=== PATIENT | female | born 1960 | race Caucasian/White ===

== ENCOUNTER → 2020-02-24 11:33 | Outpatient (CLI) | payer OTHER, SELFPAY ==
--- NOTE | ~2020-02-24 | XR_ITS ---
EXAMINATION: XR hip LT min 2V DATE: 02/24/2020 11:47 INDICATION: Left hip pain. TECHNIQUE: 2 views of left hip were obtained. COMPARISON: None. FINDINGS: Bone alignment is normal. No fracture. Left hip joint space is normal. IMPRESSION: 1. Normal left hip. Reviewed, dictated and finalized at location A. ENT ACCOUNTS SPECIALIST IMPRESSION: 1. Normal left hip.
== END ==
PROVIDERS: PCP Family Medicine; Visit Provider Chiropractor
DX: M25.552 Pain in left hip (principal)
CPT/HCPCS: 73502

== ENCOUNTER 2020-03-23 09:56 | Outpatient (CLI) | payer OTHER, SELFPAY ==
--- NOTE | ~2020-03-23 | MM_ITS ---
EXAMINATION: MM screening [facility] BI w zane HISTORY: Screening mammogram TECHNIQUE: Craniocaudal and mediolateral oblique 3-D tomosynthesis images were obtained and synthetic 2-D images were generated. CAD analysis was submitted and interpreted. COMPARISON: 02/26/2019, 01/15/2018, 01/01/2017, 11/16/2014, 11/12/2013 bilateral digital screening mammogr am examinations BREAST PARENCHYMAL COMPOSITION: There are scattered areas of fibroglandular density. FINDINGS: Stable mild fibroglandular asymmetry. There is no evidence of suspicious mass, calcificatio n, or architectural distortion to suggest malignancy in either breast. There has been no suspicious i nterval change. IMPRESSION: 1. No mammographic evidence of malignancy. 2. Recommend routine screening mammography in one year. BI-RADS Category 1: Negative Reviewed, dictated and finalized at location A. R PRODUCTION LEAD WORKER
== END 2020-03-23 09:57 | disposition home or self-care (01) ==
PROVIDERS: PCP Family Medicine; Visit Provider Nurse Practitioner Obstetrics & Gynecology
DX: Z12.31 Encounter for screening mammogram for malignant neoplasm of breast (principal)
CPT/HCPCS: 77063; 77067

== ENCOUNTER → 2020-04-01 11:12 | Outpatient (CLI) | payer OTHER, SELFPAY ==
--- NOTE | ~2020-04-01 | XR_ITS ---
XR lumbar spine 2-3V DATE: 04/01/2020 11:52 INDICATION: Low back pain TECHNIQUE: AP, lateral, coned lateral lumbosacral views COMPARISON: None FINDINGS: Normal alignment of the lumbar spine. No fracture or bone destruction or spondylolisthesis. The lumbar pedicles are intact. There is mild t o moderate degenerative disc disease of the lumbar spine, most pronounced at L3-4. Joints are normal. IMPRESSION: Mild to moderate degenerative disc disease Reviewed, dictated and finalized at location A. D GRADE TEACHER
== END ==
PROVIDERS: PCP Family Medicine; Visit Provider Family Medicine
DX: M47.816 Spondylosis without myelopathy or radiculopathy, lumbar region (principal)
CPT/HCPCS: 72100

== ENCOUNTER → 2020-08-24 09:59 | Outpatient (CLI) | payer OTHER, SELFPAY ==
--- NOTE | ~2020-08-24 | MR_ITS ---
EXAMINATION: MR hip LT wo con DATE: 08/24/2020 11:00 INDICATION: Left hip pain TECHNIQUE: Magnetic resonance imaging (MRI) of the left hip was performed without intravenous contra st. Sequences included full-field axial PD-weighted FS FSE, T2-weighted FS FSE and T1-weighted FSE, c oronal of the pelvis with PD-weighted FS FSE, T1-weighted FSE and T2-weighted FS FSE, small field of view of the left hip with axial PD-weighted FS FSE, sagittal PD-weighted FS FSE, coronal PD weighted FS FSE and coronal T2-weighted FS FSE. Additional radial T1-weighted FGR oriented orthogonal to the acetabular rim were obtained for evaluation of the labrum. COMPARISON: Left hip radiographs dated 02/24/2020 FINDINGS: Bones/labrum/cartilage: Alignment is normal. No fracture, avascular necrosis or pathologic marrow replacing process. Diffuse degenerative tearing of the anterior to posterior superior labrum appears markedly thickened with am orphous increased signal. Mild left hip osteoarthritis with partial thickness chondral ulceration, de ep fissuring and underlying mild subarticular edema at the superior left acetabulum. Fluid: Asymmetric small left hip joint effusion with mild synovitis. Physiologic amount fluid at the right h ip joint space. No bursitis or other abnormal fluid collections. Soft tissues: Normal and symmetric muscle bulk and signal in the pelvis and visualized proximal thighs. The iliopso as, gluteal and proximal hamstring tendons are normal. Limited evaluation of visceral organs of the p humberto is unremarkable. No pathologically enlarged pelvic/inguinal lymphadenopathy. IMPRESSION: 1. Mild left hip osteoarthritis with high-grade chondral malacia the superior acetabulum and prominen t anterior to posterosuperior labral degeneration. 2. Small left hip joint effusion. Reviewed, dictated and finalized at location A. IMPRESSION: 1. Mild left hip osteoarthritis with high-grade chondral malacia the superior a cetabulum and prominent anterior to posterosuperior labral degeneration. 2. Small left hip joint effusion.
== END ==
PROVIDERS: PCP Family Medicine; Visit Provider Orthopaedic Surgery
DX: M16.12 Unilateral primary osteoarthritis, left hip (principal); M25.452 Effusion, left hip
CPT/HCPCS: 73721

== ENCOUNTER 2021-05-12 09:15 | Outpatient (CLI) | payer OTHER, SELFPAY ==
--- NOTE | ~2021-05-12 | MM_ITS ---
EXAMINATION: MM screening [facility] BI w zane HISTORY: Screening TECHNIQUE: Craniocaudal and mediolateral oblique 3-D tomosynthesis images were obtained and synthetic 2-D images were generated. CAD analysis was submitted and interpreted. COMPARISON: Comparison to multiple prior studies sequentially, with oldest reviewed study dated 11/16. BREAST PARENCHYMAL COMPOSITION: The breasts are heterogeneously dense, which may obscure small masses . FINDINGS: There is no evidence of suspicious mass, calcification, or architectural distortion to sugg est malignancy in either breast. There has been no suspicious interval change. IMPRESSION: 1. No mammographic evidence of malignancy. 2. Recommend routine screening mammography in one year. BI-RADS Category 1: Negative Reviewed, dictated and finalized at location A. ER/WAITRESS CAPTAIN
== END 2021-05-12 09:16 | disposition home or self-care (01) ==
LOC: ANHIMG 09:17
PROVIDERS: PCP Family Medicine; Visit Provider Nurse Practitioner Obstetrics & Gynecology
DX: Z12.31 Encounter for screening mammogram for malignant neoplasm of breast (principal)
CPT/HCPCS: 77063; 77067

== ENCOUNTER → 2022-03-07 10:21 | Outpatient (CLI) | payer OTHER, SELFPAY ==
--- NOTE | ~2022-03-07 | XR_ITS ---
XR hip LT min 2V DATE: 03/07/2022 10:40 INDICATION: Left hip pain since replacement in June 2021 TECHNIQUE: AP and lateral views COMPARISON: 02/24/2020 left hip FINDINGS: Status post left total hip arthroplasty. No fracture or dislocation, periosteal reaction or bone destruction. Normal alignment at the pubic symphysis and sacroiliac joints. IMPRESSION: Status post left total hip arthroplasty Reviewed, dictated and finalized at location A. DENT RESPONSE SPECIALIST
== END ==
PROVIDERS: PCP Family Medicine; Visit Provider Family Medicine
DX: M25.552 Pain in left hip (principal); Z96.642 Presence of left artificial hip joint
CPT/HCPCS: 73502

== ENCOUNTER 2022-09-08 08:31 | Outpatient (CLI) | payer OTHER, SELFPAY ==
--- NOTE | ~2022-09-08 | MM_ITS ---
EXAMINATION: MM screening [facility] BI w zane HISTORY: Screening mammogram TECHNIQUE: Craniocaudal and mediolateral oblique 3-D tomosynthesis images were obtained and synthetic 2-D images were generated. CAD analysis was submitted and interpreted. COMPARISON: 05/12/2021, 03/23/2020, 02/26/2019 BREAST PARENCHYMAL COMPOSITION: There are scattered areas of fibroglandular density. FINDINGS: No suspicious mass, calcification, or architectural distortion are identified in either soni ast to suggest malignancy. There has been no suspicious interval change. IMPRESSION: 1. No mammographic evidence of malignancy. 2. Recommend routine screening mammography in one year. BI-RADS Category 1: Negative Reviewed, dictated and finalized at location A.
== END 2022-09-08 08:32 | disposition home or self-care (01) ==
LOC: ANHIMG 08:33
PROVIDERS: PCP Family Medicine; Visit Provider Nurse Practitioner Obstetrics & Gynecology
DX: Z12.31 Encounter for screening mammogram for malignant neoplasm of breast (principal)
CPT/HCPCS: 77063; 77067

== ENCOUNTER 2023-02-11 11:53 | Emergency (ER) | payer OTHER, SELFPAY ==
--- NOTE | ~2023-02-11 | XR_ITS ---
XR ankle RT min 3V, XR foot RT min 3V 02/11/2023 12:18 INDICATION: Right foot and ankle pain after fall PROCEDURE: 4 views of the right ankle and 4 views right foot COMPARISON: No prior studies for comparison. FINDINGS: Fracture, dislocation or subluxation is not identified. The soft tissues appear within norm al limits. No foreign bodies are identified. There is mild osteoarthritis of the first metatarsophal angeal joint. IMPRESSION: 1: NO ACUTE BONE OR JOINT ABNORMALITY IDENTIFIED. Reviewed, dictated and finalized at location A. IMPRESSION: 1: NO ACUTE BONE OR JOINT ABNORMALITY IDENTIFIED.
[2023-02-11 12:07] VITALS: BP 142/85; PULSE 102; RESP 16; TEMP 36.6; O2SAT 100
--- NOTE | 2023-02-11 12:26 | ED.GENADULT ---
HPI - General Adult General Chief complaint: Extremity Injury, Lower Stated complaint: fall, rt foot Source: patient Mode of arrival: ambulatory Limitations: no limitations History of Present Illness HPI narrative: Patient presents for evaluation of right foot pain. She indicates she fell down approximately 6 wooden steps indoors last night. She did not hit her head. No LOC. She has bruising to 2nd digit of right foot. At rest her pain is mild but with weight-bearing her pain increases to 10/10 severity. She took Tylenol earlier today with minimal improvement thereafter. No paresthesias. Related Data Home Medications Medication Instructions Recorded Confirmed bupropion HCl 300 mg 24 hr tablet, 300 mg PO QAM 04/29/20 02/11/23 extended release latanoprost 0.005 % eye drops 1 drp ophthalmic (eye) DAILY 04/29/20 08/16/20 levothyroxine 112 mcg tablet 112 mcg PO DAILY 04/29/20 02/11/23 (Synthroid) liothyronine 5 mcg tablet 10 mcg PO DAILY 04/29/20 08/16/20 meloxicam 15 mg tablet 15 mg PO DAILY 04/29/20 08/16/20 metronidazole 1 % topical gel 1 applic topical DAILY 04/29/20 08/16/20 Allergies Allergy/AdvReac Type Severity Reaction Status Date / Time tetracycline Allergy Mild Rash Verified 05/17/20 08:41 amoxicillin Allergy Unknown Verified 02/11/23 12:12 Review of Systems Review of Systems: CONSTITUTIONAL: Denies fever, chills, or sweats. EYES: Denies visual changes, redness, or discharge. ENT: Denies rhinorrhea, congestion, sore throat, or otalgia. CARDIOVASCULAR: Denies chest pain, palpitations, or edema. RESPIRATORY: Denies cough or dyspnea. GASTROINTESTINAL: Denies abdominal pain, nausea, vomiting, or diarrhea. GENITOURINARY: Denies dysuria or hematuria. SKIN: Reports bruising to the 2nd digit of the right foot. MUSCULOSKELETAL: Reports pain and swelling to right foot. NEUROLOGIC: Denies headache, numbness, dizziness, or weakness. PSYCHIATRIC: Denies anxiety or depression. [facility] Past Medical History Medical History Thyroid disorder Surgical History Surgical History H/O thyroidectomy (~2003) Family History Family History Unknown Arthritis Skin cancer Malignant neoplasm of prostate Musculoskeletal disease Social History Social History Smoking status: Never smoker Alcohol intake: current Alcohol use details: Socially Substance use: never Living arrangements: with family Gender identity (if verbalized by the patient): Female Sexual Orientation (if Verbalized by the Patient): Straight or Heterosexual Spiritual care concerns: No Exam Narrative: GENERAL: Well-appearing, well-nourished, and in no acute distress. HEAD: Normocephalic, atraumatic. EYES: PERRLA and EOMI. ENT: Nares clear, no rhinorrhea or epistaxis. Mucous membranes moist. Oropharynx without tonsillar hypertrophy exudate or other lesions. Bilateral TMs pearly zepeda nonbulging NECK: Supple. No adenopathy or masses. No carotid bruits or JVD CHEST: Clear to auscultation. No respiratory distress. No wheezes rales or rhonchi HEART: Regular rate and rhythm. No murmur heard. Normal peripheral pulses. ABDOMEN: Soft, nontender, nondistended, normal active bowel sounds. EXTREMITIES: Able to dorsi and plantar flex right foot. Able to wiggle all digits the right foot. There is tenderness over the proximal phalanx of the 2nd digit of the right foot. There is also tenderness over the 1st-3rd metatarsals of the right foot SKIN: Ecchymosis noted to the 2nd digit of the right foot. NEURO: No focal deficits. Alert and oriented x3. PSYCH: Normal mood and affect. Course Course Emergency Course: this is a 62-year-old female who presented for evaluation of right foot pain. X
== END 2023-02-11 12:41 | disposition home or self-care (01) ==
PROVIDERS: Emergency Provider Nurse Practitioner; PCP Family Medicine
DX: S90.31XA Contusion of right foot, initial encounter (principal); Z79.899 Other long term (current) drug therapy; Z79.1 Long term (current) use of non-steroidal anti-inflammatories (NSAID); W10.9XXA Fall (on) (from) unspecified stairs and steps, initial encounter
CPT/HCPCS: 73610; 73630; 99213; G0463

== ENCOUNTER 2024-04-07 15:19 | Outpatient (CLI) | payer OTHER, SELFPAY ==
--- NOTE | ~2024-04-07 | MM_ITS ---
EXAMINATION: MM screening [facility] BI w zane HISTORY: Screening TECHNIQUE: Craniocaudal and mediolateral oblique 3-D tomosynthesis images were obtained and synthetic 2-D images were generated. CAD analysis was submitted and interpreted. COMPARISON: Comparison to multiple prior studies sequentially, with oldest reviewed study dated 01/01. BREAST PARENCHYMAL COMPOSITION: Not dense: There are scattered areas of fibroglandular density. FINDINGS: There is no evidence of suspicious mass, calcification, or architectural distortion to sugg est malignancy in either breast. There has been no suspicious interval change. IMPRESSION: 1. No mammographic evidence of malignancy. 2. Recommend routine screening mammography in one year. BI-RADS Category 1: Negative Reviewed, dictated and finalized at location B. RUMENT MAKER
== END 2024-04-07 15:20 | disposition home or self-care (01) ==
LOC: ANHIMG 15:22
PROVIDERS: PCP Family Medicine; Visit Provider Family Medicine
DX: Z12.31 Encounter for screening mammogram for malignant neoplasm of breast (principal)
CPT/HCPCS: 77063; 77067